=== PATIENT | male | born 2005 | race Caucasian/White ===

== ENCOUNTER 2024-06-01 20:23 | Emergency (ER) | payer OTHER, SELFPAY ==
[2024-06-01 20:41] VITALS: BP 136/80
--- NOTE | 2024-06-01 22:28 | ED.SKININJ ---
HPI-Injury
<ALINA Waller (Lenka) - Last Filed: 06/01/24 23:49>
General
Chief Complaint: Skin Surface Trauma
Source: patient
Exam Limitations: none
Time Seen by Provider: 06/01/24 22:26
Nursing documentation reviewed up to this point in time: agreed with
History of Present Illness-Injury
Is this injury a work related problem?: No
[facility] No
Initial Injury comments:
Pt is a 18 yo male with no PMHx who presents to the ED with a laceration superior to the R eyebrow that occurred today at 1800. 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 He is
unsure how the injury occurred - unsure if there was a sharp object, if he scratched himself, or if someone hit him. He denies any head trauma or injury, no LOC. Denies head or neck pain, double vision, blurry vision, loss of balance. The bleeding
was difficult to control until 2 steri strips were applied in triage.
He states he 100% certain he is up to date on his tetanus, has received it within the last 5 years.
Skin Exam
<ALINA Waller (Lenka) - Last Filed: 06/01/24 23:49>
Laceration
Right Upper Lateral Eye brow:
Length in cm: 1
Orientation: diagonal
Type of Laceration: simple
Any active bleeding?: no active bleeding
Distal skin color and temperature: normal-warm & good color
Phy Exam
<ALINA Waller (Lenka) - Last Filed: 06/01/24 23:49>
General Physical Exam
General Presentation: well appearing and no apparent distress
General age: appears stated age
General Skin: warm and dry
General Habitus: normal
General Mental: alert
General Hydration: appears well hydrated
ENT Exam
ENT Exam: EOMI and normocephalic
Eye Exam
Eye Exam: PERRL, EOMI, conjunctiva normal and visual fay normal
Cardiovascular Exam
Cardiovascular Exam: normal peripheral pulses
Pulmonary Exam
Pulmonary Exam: no respiratory distress
Skin Exam
Skin Exam: normal color, warm/dry and laceration (1cm diagonal to upper outer eyebrow)
Course
<ALINA Waller (Lenka) - Last Filed: 06/01/24 23:49>
Vital Signs
Initial and Last Documented VS:
Initial Vital Signs
Temp Pulse Resp BP Pulse Ox
97.4 F 86 18 136/80 100
06/01/24 20:41 06/01/24 20:41 06/01/24 20:41 06/01/24 20:41 06/01/24 20:41
Last Documented Vital Signs
Temp Pulse Resp BP Pulse Ox
97.4 F 77 18 132/89 100
06/01/24 20:41 06/01/24 23:13 06/01/24 23:13 06/01/24 23:13 06/01/24 20:41
<Jose Reyes DO - Last Filed: 06/01/24 23:08>
Vital Signs
Initial and Last Documented VS:
Initial Vital Signs
Temp Pulse Resp BP Pulse Ox
97.4 F 86 18 136/80 100
06/01/24 20:41 06/01/24 20:41 06/01/24 20:41 06/01/24 20:41 06/01/24 20:41
Last Documented Vital Signs
Temp Pulse Resp BP Pulse Ox
97.4 F 77 18 132/89 100
06/01/24 20:41 06/01/24 23:13 06/01/24 23:13 06/01/24 23:13 06/01/24 20:41
Procedures
<ALINA Waller (Lenka) - Last Filed: 06/01/24 23:49>
Laceration Closure
Right Upper Lateral Eye brow:
Status of Wound: clean
Size of Wound in cm: 1
Description of Wound Edges: sharp
Preparation: cleaned with saline
Revision/Debridement: routine- no revision
Type of Closure: Dermabond-skin glue and other
Additional information:
Wound cleaned and bleeding controlled. 3 steri strips placed on top of skin glue after approximation of wound. Patient tolerated procedure well.
<ALINA Waller (Lenka) - Last Filed: 06/01/24 23:49>
MDM/Problems Addressed
Differential Diagnosis Includes:
1cm laceration to upper outer eyebrow. No vision changes, no head trauma, no LOC. Will repair with skin glue and steri strips. Precautions for ED return discussed.
<ALINA Waller (Lenka) - Last Filed: 06/01/24 23:49>
*Critical Care Note
Total Time (30-74mins, 75-104mins- exclusive of procedures): Not Applicable
ED Attending Note
<ALINA Waller (Lenka) - Last Filed: 06/01/24 23:49>
-
Portions of this chart may have been created with voice recognition software.� Occasional wrong word or��sound alike� substitutions may have occurred due to the inherent limitations of voice recognition software.
<Jose Reyes DO - Last Filed: 06/01/24 23:08>
ED Attending Note
Patient seen and examined by attending physician: Yes
I performed the substantive portion of visit, reviewed & personally made and approve the management plan that is documented in note by myself or ASYA.: Yes
ED Attending Note:
Pleasant 18-year-old male presents with a superficial laceration above the right eyebrow. This occurred around 6 PM this evening. Patient was wrestling with his friends when the injury occurred. Patient denies head injury or loss of
consciousness. Patient was seen in conjunction with the PA student. I have reviewed and agree with the history and treatment plan presented. On my independent physical exam, patient is awake, alert, and oriented x3 no acute distress. Bleeding is
controlled. 1 cm linear laceration above the right eyebrow. Closed with skin glue and Steri-Strips.
Discharge Plan
Departure
Patient Disposition: Home (Routine Discharge)
Date of Disposition: 06/01/24
Time of Disposition: 23:07
Patient with high blood pressure during this ER visit?: No
Condition: Good
Discharge Problem:
Laceration of face without complication
Instructions: Laceration Repair With Glue (DC), Wound Care (DC)
Referrals:
[facility] [Outside]
UNKNOWN - PT DOES,NOT KNOW [Family Provider] -
Activity Restrictions/Additional Instructions:
We applied glue and 3 steri-strips to your skin laceration today for closure. Please do not remove the steri strips until they fall off on their own. The glue will fall off on its own in 1-2 weeks. Please do not pick at the glue as the wound heals.
Do not get the wound wet for 24 hours. Please abstain from aggravating activities such as wrestling for 4-5 days while the wound heals.
Return to the emergency department if you develop a fever or chills, redness or swelling around the wound, or if you notice any discharge from the wound.
It was a pleasure meeting you and taking part in your care. We hope for your continued healing and wellness.
Please read discharge instructions in their entirety. However, they are for general education and may not describe your exact diagnosis at discharge. Information on your ER visit and medical conditions were discussed with you along with appropriate
follow up information...
If indicated, please take your medications as instructed and indicated on discharge paperwork.
Please schedule a follow up appointment as directed. Call to schedule an appointment
Please return to the emergency department with ANY change in, persisting, or worsening of symptoms. If any of your symptoms do not improve, or persist, or become more severe within 6-12 hours, please return to the emergency department for further
care.
Please return to the emergency department if you develop a headache, neck pain/stiffness, fever greater than 100.4F, chest pain, shortness of breath, persistent nausea, vomiting, slurred speech, difficulty walking, numbness/tingling, weakness, signs
of infection or any other symptoms that are worrisome to you.
If you have any questions or concerns please do not hesitate to call the Hospital at or E-mail me directly at [email or web address]
Interventions
Interventions:
*Risk Screen - Suicide Last Done: 06/01/24 20:41
*General Assessment Last Done: 06/01/24 22:48
*Neglect/Abuse Screening Last Done: 06/01/24 20:41
*Nursing Disposition Last Done: 06/01/24 23:13
ED-Skin Assessment Last Done: 06/01/24 22:15
Discharge Date and Time
Discharge Date/Time: 06/01/24 23:14
Print Language: DIVEHI
[2024-06-01 23:13] VITALS: BP 132/89
== END 2024-06-01 23:14 | disposition home or self-care (01) ==
LOC: EMR 20:23
PROVIDERS: EMERGENCY PHYSICIAN Student in an Organized Health Care Education/Training Program
DX: S01.81XA Laceration without foreign body of other part of head, initial encounter (principal); Y93.72 Activity, wrestling
CPT/HCPCS: 99282; 12011